=== PATIENT | female | born 1995 | race African-American/Black ===

== ENCOUNTER 2019-08-12 21:23 | Observation (INO) | payer OTHER ==
[2019-08-12] MEDS ORDERED: Acetaminophen 500 MG TAB ONE (21:48)
[2019-08-12] MEDS ORDERED: Metoprolol Tartrate 25 MG TAB ONE (22:24)
[2019-08-12 23:54] VITALS: BMI 32.3
[2019-08-13] MEDS ORDERED: Acetaminophen 650 MG Suppository PR PRN (02:24)
[2019-08-13 02:59] LABS: #Basophils 0.1 thou/uL (0.0-0.2); #Lymphocytes 1.5 thou/uL (1.20-3.40); #Monocytes 0.6 thou/uL (0.11-0.59); #Neutrophils 3.4 thou/uL (1.40-6.50); %Basophils 1.3 % (0.0-1.0); %Eosinophils 0.2 % (0.0-10.0); %Lymphocytes 26.6 % (21.0-51.0); %Neutrophils 61.9 % (42.0-75.0); Mean Corpuscular HGB CONC 34.1 g/dL (32.0-36.0); Mean Corpuscular Hemoglobin 35.3 pg (27.0-31.0); Mean Platelet Volume 7.2 fL (7.4-10.4); Platelet Count 261 thou/uL (130-400); RBC Distribution Width 10.9 % (11.5-14.5); Red Blood Cell (RBC) Count 3.39 mill/uL (4.20-5.40); White Blood Cell (WBC) Count 5.5 thou/uL (4.8-10.8)
--- NOTE | 2019-08-13 03:09 | HP ---
TIME OF ASSESSMENT: 0100 hours. CHIEF COMPLAINT: Palpitations and shortness of breath. HISTORY OF PRESENT ILLNESS: Ms. Singer is a 23-year-old woman with no past medical history, who presented to the Emergency Department at [facility] due to complaints of palpitations that started around noon. The patient apparently experienced shortness of breath when the palpitations started. She states she felt that she could not catch her breath. Denies having any chest pain, but does report having discomfort in her back, which she states was associated with her heart racing. Once it settled, the discomfort improved. She reports having a productive cough since yesterday, but has been unable to bring up the phlegm. Denies having any fevers or chills at home. She does state her son has been sick at home with a fever. She denies having any nausea or vomiting. No abdominal pain or cramping. Denies having any urinary symptoms. Does report nasal congestion. Denies any sore throat. All other review of systems are negative. ED COURSE: In the emergency department, the patient underwent a chest x-ray that showed no acute thoracic finding. She had a CT angiogram of the chest to rule out PE, which showed no evidence of pulmonary embolism. LABORATORY DATA: Laboratory studies were done demonstrating a normal white blood count. Neutrophils 70%, hemoglobin 14.6, hematocrit 44.6, platelets 329. Sodium 137, potassium 4.9, BUN 13, creatinine 0.81, GFR greater than 90, and glucose 91. LFTs unremarkable. Troponin negative. She had an EKG done showing sinus tachycardia with a heart rate of 125. She was given 12.5 mg of metoprolol tartrate and 1 g of Tylenol due to a temperature of 100.8 in the ED. Blood pressure remained within normal range. PAST MEDICAL HISTORY: None. PAST SURGICAL HISTORY: Hernia repair in 2015. SOCIAL HISTORY: The patient denies any tobacco use, alcohol consumption, or illicit drug use. FAMILY HISTORY: Noncontributory. ALLERGIES: NO KNOWN DRUG ALLERGIES. CURRENT MEDICATIONS: Phentermine. PHYSICAL EXAMINATION: GENERAL: The patient appears well developed, well nourished, is in no acute distress. Resting comfortably in bed. VITAL SIGNS: Temperature 100.4, pulse 103, respirations 13, O2 saturation 98% on room air, and blood pressure 126/63. HEENT: Normocephalic and atraumatic. Pupils are equal, round, and reactive to light. Sclerae without icterus. Oropharynx is clear. NECK: Supple. LUNGS: Clear to auscultation bilaterally without wheezes, rales, or rhonchi. CARDIAC: Regular rate and rhythm. ABDOMEN: Soft, nontender, and nondistended. Normoactive bowel sounds present. No guarding or rigidity. No renal angle tenderness. EXTREMITIES: No lower leg swelling or edema. NEUROLOGIC: Alert and oriented x3. SKIN: Warm and dry. INVESTIGATIONS: As mentioned above in HPI. IMPRESSION AND PLAN: Ms. Singer is a pleasant 23-year-old woman, who presented with palpitations and associated shortness of breath that started around noon. She had an EKG showing sinus tachycardia. Heart rate improved following metoprolol given in the emergency department. The patient has been febrile since arriving to the emergency department and has undergone a CT angiogram that showed no evidence of PE. Chest x-ray was unremarkable. No evidence of infiltrates on the chest x- ray nor on the CT angiogram. We will complete workup to determine underlying infectious process. We will obtain urinalysis. We will add lactic acid and procalcitonin and we will screen for influenza. Blood cultures were ordered as well. At this present time, the patient denies any complaints. We will continue Tylenol for fever. Famotidine started for GI prophylaxis. DVT prophylaxis, the patient is ambulatory. She is full code. Surrogate decision maker is her , Teja Singer. Case discussed with attending, who agrees with the plan of care as described above. Job ID: [id number] MTDD
[2019-08-13 03:39] LABS: Anion Gap 10 mmol/L (10-20); BUN (Urea Nitrogen) 8 mg/dL (7.0-18.7); Calc. Creatinine Clearance 171 mL/min (70-130); Calcium 8.6 mg/dL (7.8-10.44); Carbon Dioxide 22 mmol/L (22-29); Chloride 109 mmol/L (98-107); Estimated GFR-MDRD Greater than 90; Glucose 123 mg/dL (70-105); Potassium 3.5 mmol/L (3.5-5.1); Sodium 137 mmol/L (136-145)
[2019-08-13] MEDS: Sodium Chloride 0.45% 1,000 ML IV SCH ×2 (05:12→15:39)
[2019-08-13] MEDS: Acetaminophen 325 MG TAB PO PRN ×2 (05:24→15:58)
[2019-08-13] MEDS ORDERED: FLU VACC QS2019-20(6MOS UP)/PF 60 MCG/0.5 ML SYRINGE IM ONE (09:00)
[2019-08-13] MEDS ORDERED: Famotidine/PF 20 mg/2ml Vial SLOW IVP SCH (09:00)
--- NOTE | 2019-08-13 12:00 | CON ---
DATE OF CONSULTATION: HISTORY OF PRESENT ILLNESS: The patient is a pleasant 23-year-old woman, who presents for evaluation of palpitations. The patient has no previous cardiac history. She was in her usual state of health when she suddenly developed rapid palpitations. The patient felt weak and short of breath. The patient denied having any chest discomfort. She came to the emergency room and noted to be in a rapid heart rate. She received multiple medications and was transferred for further evaluation. The patient states she still feels mild palpitations. The patient has no known cardiac risk factors. PAST MEDICAL HISTORY: None. PAST SURGICAL HISTORY: Hiatal hernia repair. SOCIAL HISTORY: Nonsmoker. MEDICATIONS: Phentermine 30 mg daily. ALLERGIES: NO KNOWN DRUG ALLERGIES. REVIEW OF SYSTEMS: Unremarkable. PHYSICAL EXAMINATION: GENERAL: Obese woman, in no acute distress. VITAL SIGNS: Blood pressure was 109/57, heart rate was 103, and temperature 99.5. NECK: Showed no jugular venous distention. LUNGS: Clear to auscultation. HEART: Regular rate and rhythm. Normal S1 and S2. No murmurs. ABDOMEN: Distended. EXTREMITIES: Show no edema. VASCULAR: Radial pulses are 2+. LABORATORY DATA: White blood cell count 5.5, hemoglobin 12.0, hematocrit of 35.2, and her platelets are 261. Her sodium was 137, potassium 3.5, chloride 109, bicarbonate 22, BUN 8, creatinine 0.72, and glucose is 123. Her troponin was 0.01. TSH was 0.7. IMAGING DATA: EKG sinus tachycardia with nonspecific T-wave abnormality. IMPRESSION: 1. Inappropriate sinus tachycardia. 2. Obesity. PLAN: This patient presents with a markedly elevated heart rate. She received multiple medications including metoprolol, adenosine, and lorazepam. The patient's heart rate will remain elevated. EKG tracings are not available to see if there was SVT. I expect this patient has inappropriate sinus tachycardia. We would recommend checking the patient's echocardiogram to make sure there is no evidence of left ventricular dysfunction. We would also recommend outpatient monitoring. We will follow this patient with you through her hospitalization. Job ID: [id number] [facility]
[2019-08-13 12:37] VITALS: BP 124/72; TEMP 100
--- NOTE | 2019-08-21 14:15 | EKG ---
Test Reason : Blood Pressure : / mmHG Vent. Rate : 125 BPM Atrial Rate : 125 BPM P-R Int : 166 ms QRS Dur : 082 ms QT Int : 306 ms P-R-T Axes : 050 053 -16 degrees QTc Int : 441 ms Sinus tachycardia T wave abnormality, consider inferior ischemia Abnormal ECG Confirmed by BRIAN ESTRADA ([id number]), videotape editor BUSTER LINO ([id number] on 08/21/2019 2:15:35 PM Referred By: Confirmed By:BRIAN De Jesus
== END 2019-08-13 16:50 | disposition home or self-care (01) ==
LOC: ERS 21:23 → 2SW 23:50
PROVIDERS: ADMIT Internal Medicine; ATTEND Internal Medicine
DX: R00.2 Palpitations (principal); R00.0 Tachycardia, unspecified; R06.02 Shortness of breath; E66.9 Obesity, unspecified; Z79.899 Other long term (current) drug therapy; Z68.32 Body mass index [BMI] 32.0-32.9, adult
CPT/HCPCS: 36415; 80048; 83605; 84145; 85025; 87040; 87804; 93005; 93306; 96361; 96375; G0378; S0028

== ENCOUNTER 2020-08-27 14:17 | Outpatient (CLI) | payer OTHER | END 2020-08-27 14:18 | disposition home or self-care (01) | LOC: DTY/OP 14:17 | PROVIDERS: ATTEND Surgery | DX: E66.01 Morbid (severe) obesity due to excess calories (principal) | CPT/HCPCS: 97802 ==

== ENCOUNTER 2020-10-22 11:04 | Outpatient (CLI) | payer OTHER | END 2020-10-22 11:05 | disposition home or self-care (01) | LOC: DTY/OP 11:04 | PROVIDERS: ATTEND Surgery | DX: E66.01 Morbid (severe) obesity due to excess calories (principal) | CPT/HCPCS: 97802 ==